=== PATIENT | male | born 2005 | race Caucasian/White ===

== ENCOUNTER 2025-02-16 10:04 | Emergency (ER) | payer OTHER, SELFPAY ==
--- NOTE | ~2025-02-16 | CT_ITS ---
EXAMINATION: CT abdomen pelvis w con DATE: 02/16/2025 13:07 INDICATION: Abdominal pain TECHNIQUE: Computed tomography (CT) of the abdomen and pelvis was performed with 100 mL Omnipaque-350 intravenous contrast. Automated exposure control and iterative reconstruction technique were employe d. The dose-length product was 411.27 mGy-cm. COMPARISON: None FINDINGS: Elevation of the left hemidiaphragm. Lungs are clear with no pneumonia, pulmonary edema or pleural ef fusion. Heart size is normal. Small pericardial effusion. Liver, gallbladder, spleen, pancreas, bilat eral adrenal glands and kidneys are normal. Bowels including the appendix are normal. Bladder is norm al. No free intraperitoneal gas or fluid. No pathologically enlarged abdominal or pelvic lymphadenopa thy. Partially visualized left femoral retrograde intramedullary ronnie fixation with subtrochanteric in terlocking screw. IMPRESSION: 1. No acute intra-abdominal/pelvic process. 2. Small pericardial effusion. 3. Elevation of the left hemidiaphragm. Reviewed, dictated and finalized at location A.
[2025-02-16 10:15] VITALS: BP 143/86; PULSE 124; RESP 20; TEMP 36.6; O2SAT 97
[2025-02-16 10:46] LABS: Basophils Percent Auto 0.3 % (0.2-1.2); Eosinophils Percent Auto 0.1 % (0-4.4); Hematocrit 46.6 % (42.0-52.0); Hemoglobin 17.2 g/dL (14.0-18.0); Immature Granulocyte Absolute 0.09 K/mm3 (0.00-0.031); Immature Granulocyte Percent A 0.8 % (0-0.5); Lymphocytes Absolute Auto 1.08 K/mm3 (0.9-3.2); Lymphocytes Percent Auto 10.1 % (18.3-44.2); Mean Corpuscular HGB Conc 36.9 g/dl (32-36); Mean Corpuscular Hemoglobin 30.8 pg (26-34); Mean Corpuscular Volume 83.4 fl (80-100); Mean Platelet Volume 9.9 fl (7.4-10.4); Monocytes Percent Auto 9.4 % (2.6-8.5); Neutrophils Absolute Auto 8.4 K/mm3 (1.3-6.7); Neutrophils Percent Auto 79.3 % (45.5-73.1); Platelet Count Result 237 k/mm3 (150-375); Red Blood Count 5.59 M/mm3 (4.6-6.20); Red Cell Distribution Width 11.5 % (11.5-14.5); White Blood Count 10.7 K/mm3 (4.5-10.0)
[2025-02-16 10:55] LABS: Alanine Aminotransferase 36 U/L (6-50); Albumin Level 4.9 g/dL (3.5-5.1); Alkaline Phosphatase 77 U/L (38-126); Anion Gap 18 mmol/L (4-12); Aspartate Amino Transferase 22 U/L (17-59); Bilirubin,Total 1.3 mg/dL (0.2-1.3); Blood Urea Nitrogen 5 mg/dL (9-20); Calcium 9.7 mg/dL (8.4-10.2); Carbon Dioxide 18 mmol/L (22-30); Chloride 100 mmol/L (98-107); Estimated CRCL calculation 134 ml/min; Estimated Glomerular Filt Rate > 60; Glucose 105 mg/dL (65-110); Lipase 57 U/L (23-300); Potassium 3.3 mmol/L (3.4-5.0); Sodium 136 mmol/L (137-145)
[2025-02-16 11:14] VITALS: PULSE 108; RESP 16
[2025-02-16 11:15] VITALS: PULSE 111; RESP 21; O2SAT 100
[2025-02-16 11:36] VITALS: PULSE 116; RESP 18; O2SAT 100
--- OUTSIDE RECORDS SUMMARY | 2025-02-16 11:43 | XMS_ITS | Clinical Summary ---
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 Internal fixation with plates and screws for a distal fibula fracture. Hardware appears intact. Alignment appears unchanged. Bone density and texture are normal. Soft tissue swelling is present. A staple projects over the distal fibula Procedure Note Elicia Wang MD - 01/22/2025 PROCEDURE: XR TIBIA FIBULA LEFT 2VW, DATE/TIME OF EXAM: 01/22/2025 9:11 AM, LOCATION [facility] INDICATION: S82.202A: Closed fracture of left tibia and fibula, initial encounter S82.402A: Closed fracture of left tibia and fibula, initial encounter ADDITIONAL CLINICAL INFORMATION: Ordering Provider Reason For Exam: fx COMPARISON: Left tibia-fibula x-ray 10/23/2024 FINDINGS: Internal fixation with an intramedullary nail and screws for a distaltibia fracture. Internal fixation with plates and screws for a distal fibula fracture. Hardware appears intact. Alignment appears unchanged. Bone density and texture are normal. Soft tissue swelling is present. Astaple projects over the distal fibula IMPRESSION: Internal fixation for a distal tibia and fibula fracture with intact hardware and unchanged alignment. Report dictated by Jese Tinajero DO (radiology tech). IElicia MD have personally reviewed and interpreted this examination/study. > Interpreting Provider: Elicia Wang MD on 01/22/2025 5:09 PM Vidhya Yang MD DIAGNOSTIC IMAGING O RDERABLES * CARDIAC EKG ORDER (01/01/2025 1:03 PM INTERIOR DESIGN PROGRAM CHAIR) Narrative 01/01/2025 1:03 PM INTERIOR DESIGN PROGRAM CHAIR Ordered by an unspecified provider. Scanned Document CARDIAC SERVICES ORD ERABLES * D-DIMER (12/30/2024 8:43 PM INTERIOR DESIGN PROGRAM CHAIR) D-Dimer Quantitative <0.27 <=0.50 mcg/mL FEU 12/30/2024 9:22 PM INTERIOR DESIGN PROGRAM CHAIR [facility] Comment: In the absence of clinical symptoms, a value less than or equal to 0.5 mcg/mL FEU significantly decreases the probability of PE/DVT (negative predictive value >95%). 1 mcg/mL FEU = 1 Fibrinogen Equivalent Unit (approximates 0.5 mcg/ml of D- Dimer). ISTH DIAGNOSTIC SCORING SYSTEM FOR DIC Score 0 1 2 3 Platelet Count(x10^3/uL) > 100 < 100 < 50 N/A PT Prolongation above upper limit of normal 0-3 3-6 > 6 N/A range (seconds) Fibrinogen (mg/dL) > 100 < 100 N/A N/A D-Dimer (mcg/mL FEU) < 0.50 N/A 0.50-5.0 > 5 Calculate Cumulative Score: > or = 5 :compatible with overt DIC < 5 :suggestive for non-overt DIC N/A = Non applicable Reference: Br. J. Haematol. 145:24-33,2008. Blood BLOOD SPECIMEN / Unknown Venipuncture / Unknown 12/30/2024 8:43 PM INTERIOR DESIGN PROGRAM CHAIR 12/30/2024 8:46 PM INTERIOR DESIGN PROGRAM CHAIR Marco Gonzalez MD LAB - COAGULATION OR DERABLES [facility] [address] [place] [address], [facility] [phone] * (ABNORMAL) CBC W AUTO DIFFERENTIAL (12/30/2024 8:43 PM INTERIOR DESIGN PROGRAM CHAIR) Only the most recent of2 resultswithin the time period is included. WBC 15.3(H) 4.0 - 10.7 x10E9/L 12/30/2024 8:53 PM [facility] RBC Count 5.91(H) 4.30 - 5.80 x10E12/L 12/30/2024 8:53 PM [facility] Hemoglobin 17.7(H) 13.3 - 17.5 g/dL 12/30/2024 8:53 PM [facility] Hematocrit 47.8 38.7 - 51.1 % 12/30/2024 8:53 PM [facility] MCV 80.9 80.0 - 98.0 fL 12/30/2024 8:53 PM [facility] MCH 29.9 26.7 - 33.6 pg 12/30/2024 8:53 PM [facility] MCHC 37.0(H) 31.7 - 36.3 g/dL 12/30/2024 8:53 PM [facility] RDW-CV 12.7 11.3 - 14.8 % 12/30/2024 8:53 PM [facility] Platelet Count 296 150 - 420 x10E9/L 12/30/2024 8:53 PM [facility] MPV 10.1 7.8 - 11.4 fL 12/30/2024 8:53 PM [facility] Neutrophil % 77.7(H) 41.0 - 74.0 % 12/30/2024 8:53 PM [facility] Lymphocyte % 12.5(L) 17.0 - 47.0 % 12/30/2024 8:53 PM [facility] Monocyte % 8.7 3.0 - 11.0 % 12/30/2024 8:53 PM [facility] Eosinophil % 0.1 0.0 - 7.0 % 12/30/2024 8:53 PM [facility] Basophil % 0.4 0.0 - 1.6 % 12/30/2024 8:53 PM [facility] Immature Granulocytes % 0.6 0.0 - 1.0 % 12/30/2024 8:53 PM [facility] Neutrophil Absolute 11.91(H) 1.60 - 7.50 x10E9/L 12/30/2024 8:53 PM [facility] Lymphocyte Absolute 1.91 1.00 - 4.40 x10E9/L 12/30/2024 8:53 PM [facility] Monocyte Absolute 1.34(H) 0.15 - 1.00 x10E9/L 12/30/2024 8:53 PM [facility] Eosinophil Absolute 0.01 0.00 - 0.60 x10E9/L 12/30/2024 8:53 PM [facility] Basophil Absolute 0.06 0.00 - 0.13 x10E9/L 12/30/2024 8:53 PM [facility] Blood BLOOD SPECIMEN / Unknown Venipuncture / Unknown 12/30/2024 8:43 PM INTERIOR DESIGN PROGRAM CHAIR 12/30/2024 8:49 PM INTERIOR DESIGN PROGRAM CHAIR Marco Gonzalez MD LAB - HEMATOLOGY ORD ERABLES [facility] [address] [place] [id number], [facility] [phone] * (ABNORMAL) COMPREHENSIVE METABOLIC PANEL (12/30/2024 8:43 PM INTERIOR DESIGN PROGRAM CHAIR) Only the most recent of2 resultswithin the time period is included. BUN 7 7 - 26 mg/dL 12/30/2024 9:12 PM [facility] Creatinine 0.87 0.71 - 1.16 mg/dL 12/30/2024 9:12 PM [facility] Sodium 140 136 - 145 mmol/L 12/30/2024 9:12 PM [facility] Potassium 3.3(L) 3.5 - 4.5 mmol/L 12/30/2024 9:12 PM [facility] Chloride 99 98 - 107 mmol/L 12/30/2024 9:12 PM [facility] CO2 25 22 - 29 mmol/L 12/30/2024 9:12 PM [facility] Glucose 87 70 - 99 mg/dL 12/30/2024 9:12 PM [facility] Calcium 10.5(H) 8.4 - 10.2 mg/dL 12/30/2024 9:12 PM [facility] Protein Total 7.9 6.0 - 8.3 g/dL 12/30/2024 9:12 PM [facility] Albumin 5.3(H) 3.4 - 5.0 g/dL 12/30/2024 9:12 PM [facility] Bilirubin Total 1.6(H) 0.2 - 1.2 mg/dL 12/30/2024 9:12 PM [facility] Alkaline Phosphatase 89 40 - 150 U/L 12/30/2024 9:12 PM [facility] ALT 30 5 - 55 U/L 12/30/2024 9:12 PM [facility] AST 17 5 - 34 U/L 12/30/2024 9:12 PM [facility] Anion Gap 16 6 - 16 12/30/2024 9:12 PM [facility] BUN/Creatinine Ratio 8 7 - 23 12/30/2024 9:12 PM [facility] Osmolality Calculated 287 275 - 295 mOsm/kg 12/30/2024 9:12 PM [facility] Albumin/Globulin Ratio 2.0 1.1 - 2.3 12/30/2024 9:12 PM [facility] eGFR by CKD-EPI >90 >=90 mL/min/1.7 3 m2 12/30/2024 9:12 PM [facility] Blood BLOOD SPECIMEN / Unknown Venipuncture / Unknown 12/30/2024 8:43 PM INTERIOR DESIGN PROGRAM CHAIR 12/30/2024 8:46 PM [facility] Marco Gonzalez MD LAB - CHEMISTRY [facility] Organization Address City/State/ZIP Co de Phone Number [address] [address], [facility] [phone] * ALCOHOL ETHYL BLOOD (12/30/2024 8:43 PM INTERIOR DESIGN PROGRAM CHAIR) Ethanol (mg/dL) <10 <10 mg/dL 9:12 PM INTERIOR DESIGN PROGRAM CHAIR [facility] Ethanol Calculated (g/dL) <0.010 <=0.010 g/dL 12/30/2024 9:12 PM INTERIOR DESIGN PROGRAM CHAIR [facility] Blood BLOOD SPECIMEN / Unknown Venipuncture / Unknown 12/30/2024 8:43 PM INTERIOR DESIGN PROGRAM CHAIR 12/30/2024 8:46 PM INTERIOR DESIGN PROGRAM CHAIR Narrative [facility] - 12/30/2024 9:12 PM INTERIOR DESIGN PROGRAM CHAIR Ethanol Interp <10: None Detected. Depression of LOADING MACHINE ADJUSTER: >100 mg/dl Potentially Critical: >250 mg/dl Potentially Fatal >400 mg/dl Ethanol in the patient's blood will contribute to the osmolar gap. Ethanol's contribution to the osmolar gap can be estimated by dividing the concentration of ethanol in mg/dL by 4.6. This test is for clinical use only and does not equal a PANCHITO for legal purposes. Marco Gonzalez MD LAB - CHEMISTRY [facility] Organization Address City/State/ZIP Co de Phone Number [address] [address], [facility] [phone] * CT ABDOMEN PELVIS W CONTRAST (12/29/2024 9:33 AM INTERIOR DESIGN PROGRAM CHAIR) Anatomical Region Laterality Modality Abdomen, Pelvis Computed Tomogra phy 12/29/2024 9:45 AM INTERIOR DESIGN PROGRAM CHAIR Impressions 12/29/2024 10:12 AM INTERIOR DESIGN PROGRAM CHAIR Impression: 1.No acute process identified in the abdomen or pelvis. 2.Diverticulosis without evidence of diverticulitis. > Dictated by Alex Gar MD (radiology tech). I, Israel Burton MD have personally reviewed and interpreted this examination/study. > Interpreting Provider: Israel Burton MD on 12/29/2024 10:12 AM Narrative 12/29/2024 10:12 AM INTERIOR DESIGN PROGRAM CHAIR PROCEDURE: CT ABDOMEN PELVIS W CONTRAST DATE/TIME OF EXAM: 12/29/2024 9:33 AM CLINICAL INFORMATION: None relevant/not provided if blank. Indication: R10.13: Abdominal pain, epigastric Additional History: COMPARISON: CT abdomen and pelvis 09/22/2024 TECHNIQUE: CT of the abdomen and pelvis was performed following the uneventful administration of 100 mL of Isovue 370 intravenous contrast according to standard protocol. Findings: Lower Chest: The lung bases are clear. Liver: Normal. Gallbladder and Bile Ducts: Normal. Spleen: Normal. Pancreas: Normal. Adrenals: Normal. Kidneys: Normal. Gastrointestinal: The stomach and visualized loops of small bowel are unremarkable. Colonic diverticulosis without evidence of diverticulitis is seen. Normal appendix. Mesentery/Peritoneum/Retroperitoneum: Normal. Bladder: Normal. Reproductive Organs: The prostate is normal. Vasculature: No vascular abnormality is present. Bones: Bone windows demonstrate no suspicious lytic or blastic lesions. The visible osseous structures are intact. Partially visualized intramedullary ronnie in the left femur. Soft tissues: Normal. Procedure Note Israel Burton MD - 12/29/2024 PROCEDURE: CT ABDOMEN PELVIS W CONTRAST DATE/TIME OF EXAM: 12/29/2024 9:33 AM CLINICAL INFORMATION: None relevant/not provided if blank. Indication: R10.13: Abdominal pain, epigastric Additional History: COMPARISON: CT abdomen and pelvis 09/22/2024 TECHNIQUE: CT of the abdomen and pelvis was performed following the uneventful administration of 100 mL of Isovue 370 intravenous contrast according to standard protocol. Findings: Lower Chest: The lung bases are clear. Liver: Normal. Gallbladder and Bile Ducts: Normal. Spleen: Normal. Pancreas: Normal. Adrenals: Normal. Kidneys: Normal. Gastrointestinal: The stomach and visualized loops of small bowel are unremarkable.Colonic diverticulosis without evidence of diverticulitis is seen. Normalappendix. Mesentery/Peritoneum/Retroperitoneum: Normal. Bladder: Normal. Reproductive Organs: The prostate is normal. Vasculature: No vascular abnormality is present. Bones: Bone windows demonstrate no suspicious lytic or blastic lesions. The visible osseous structures are intact. Partially visualizedintramedullary ronnie in the left femur. Soft tissues: Normal. Impression: 1.No acute process identified in the abdomen or pelvis. 2.Diverticulosis without evidence of diverticulitis. > Dictated by Alex Gar MD (radiology tech). I, Israel Burton MD have personally reviewed and interpreted this examination/study. > Interpreting Provider: Israel Burton MD on 510:12 AM Marco Jiménez MD CT ORDERABLES * LACTIC ACID BLOOD REFLEX TO REPEAT (12/29/2024 7:55 AM INTERIOR DESIGN PROGRAM CHAIR) Lactic Acid-Stat 1.8 <=2.0 mmol/L 12/29/2024 8:54 AM INTERIOR DESIGN PROGRAM CHAIR [facility] Blood BLOOD SPECIMEN / Unknown Venipuncture / Unknown 12/29/2024 7:55 AM INTERIOR DESIGN PROGRAM CHAIR 12/29/2024 8:12 AM INTERIOR DESIGN PROGRAM CHAIR Marco Jiménez MD LAB - CHEMISTRY [facility]YLE [facility]KS Performing Organization Address City/[facility]/ZIP Co de Phone Number [address] [address], [facility] [phone] * (ABNORMAL) LIPASE BLOOD (12/29/2024 7:55 AM INTERIOR DESIGN PROGRAM CHAIR) Lipase 7(L) 8 - 78 U/L 12/29/2024 9:01 AM INTERIOR DESIGN PROGRAM CHAIR [facility] Blood BLOOD SPECIMEN / Unknown Venipuncture / Unknown 12/29/2024 7:55 AM INTERIOR DESIGN PROGRAM CHAIR 12/29/2024 8:33 AM INTERIOR DESIGN PROGRAM CHAIR Narrative [facility] - 12/29/2024 9:01 AM INTERIOR DESIGN PROGRAM CHAIR Lipase results from the [employer] Alinity analyzer may not be comparable with other methodologies. Marco Jiménez MD LAB - CHEMISTRY [facility]YLE SHANKS [address] [address], [place] [phone] * ETT LINE PERFORMABLE (12/15/2024 2:29 PM INTERIOR DESIGN PROGRAM CHAIR) Narrative Camron Garrison MD - 12/15/2024 2:29 PM INTERIOR DESIGN PROGRAM CHAIR Camron Garrison MD 12/15/2024 2:30 PM Endotracheal Tube Placement: Patient Location: OR. Intubation Event Date/Time: 12/15/2024 2:13 PM Procedure: intubation ([id number]) Procedure Section: Induction: standard IV Patient Position: sniffing Mask Ventilation: easy. Blade Type: Jax Blade Size: 4 Laryngoscopy View: grade 1 (full cords) Intubation Adjuncts: stylet Tube: endotracheal tube Placement: oral Tube type: cuff - inflated Tube Size (MM): 8 Depth of Insertion (CM): 23 Measured From: lips Cuff volume (mL): 8 Cuff Inflated With: air Number of Attempts: 1. Placement Verified By: direct visualization, bilateral breath sounds, chest auscultation and CO2 monitor Tube secured with: adhesive tape. Dentition unchanged? Yes Difficult Airway? No. Procedure Start Time: 12/15/2024 2:13 PM. Staff Section Anesthesia Provider: Camron Garrison MD, Performed the procedure Provider #1: Gian Damon DO. Gian Damon DO GENERAL ANESTHESI A ORDERABLES from Last 3 Months Advance Directives * Full Code (Latest Code Status on File) Date Activated Date Inactivated Comments 09/22/2024 5:34 PM 09/22/2024 7:42 PM * Full Code Date Activated Date Inactivated Comments 07/29/2024 3:21 AM 08/08/2024 2:18 PM Care Teams Ict Project Manager Relationship Specialty Start Date End Date Prem Rodriguez MD [address] [address] PCP - General Family Medicine 07/31/24 Prem Rodriguez MD [address] [address] Family Medicine 07/29/24
--- OUTSIDE RECORDS SUMMARY | 2025-02-16 11:43 | XMS_ITS | Clinical Summary ---
Author Organization [facility] Address [address] [place] [address] Phone Care Team Providers Care Mortgage Loan Funder Name Role Phone Prem Rodriguez MD Primary Care Provider [phone] Allergies Active Allergy Reactions Criticality Noted Date Comments Amoxicillin-Pot Clavulanate Rash Medium 04/01/20 24 Cephalexin Hives High 09/20/2019 Medications omeprazole (PriLOSEC) 40 mg Capsule, Delayed Release(E.C.) Take 40 mg by mouth daily. Active gabapentin (NEURONTIN) 100 mg capsule Take 100 mg by mouth 3 times daily. Active Active Problems Problem Noted Date Diagnosed Date Seizure 12/09/2024 Encounters Date Type Department Care Team Description 02/06/2025 External Device Data ST[facility] ABSTRACTION Provider, Abstract 02/06/2025 External Device Data [facility] ABSTRACTION Provider, Abstract 01/09/2025 External Device Data [facility] ABSTRACTION Provider, Abstract 01/02/2025 External Device Data [facility] ABSTRACTION Provider, Abstract 01/02/2025 External Device Data [facility] ABSTRACTION Provider, Abstract 12/12/2024 External Device Data [facility] ABSTRACTION Provider, Abstract 12/12/2024 External Device Data [facility] ABSTRACTION Provider, Abstract 12/12/2024 External Device Data [facility] ABSTRACTION Provider, Abstract 12/08/2024 7:44 PM INVESTMENT EXECUTIVE - 12/09/2024 12:01 AM INVESTMENT EXECUTIVE Emergency [facility] [address] [place] [address] Seizure (CMS/HCC) (Primary Dx) Discharge Disposition: Home or Self Care 12/08/2024 Travel from Last 3 Months Social History Tobacco Use Types Packs/Day Years Used Date Smoking Tobacco: Some Days Cigarettes Smokeless Tobacco: Current Tobacco Cessation:Ready to Q uit: Not Asked; Counseling Given: Not Answered Alcohol Use Standard Drinks/Week Comments Yes 0 (1 standard drink = 0.6 oz pur e alcohol) Feeling Safe Answer Date Recorded Are you in a relationship wi th someone who hurts you emotionally and/or physically? No 12/08/2024 Sex and Gender Information Value Date Recorded Sex Assigned at Not on file Legal Sex Male 11:51 AM INVESTMENT EXECUTIVE Gender Identity Not on file Sexual Orientation Not on file Last Filed Vital Signs Vital Sign Reading Time Taken Comments Blood Pressure 107/93 12/08/2024 11:55 PM INVESTMENT EXECUTIVE Pulse 90 12/08/2024 11:55 PM INVESTMENT EXECUTIVE Temperature 37.1 C (98.8 F) 12/08/2024 5:53 PM INVESTMENT EXECUTIVE Respiratory Rate 27 12/08/2024 11:55 PM INVESTMENT EXECUTIVE Oxygen Saturation 100% 12/08/2024 11:55 PM INVESTMENT EXECUTIVE Inhaled Oxygen Concentration - - Weight 90.7 kg (200 lb) 12/08/2024 5:53 PM INVESTMENT EXECUTIVE Height 177.8 cm (5' 10 ) 12/08/2024 5:53 PM INVESTMENT EXECUTIVE Body Mass Index 28.7 12/08/2024 5:53 PM INVESTMENT EXECUTIVE Plan of Treatment Health Maintenance Due Date Last Done Comments HPV VACCINES (1 - Male 3-dose series) 2018 HEPATITIS B VACCINES (1 of 3 - 19+ 3-dose series) 04/09 INFLUENZA VACCINE (#1) 2024 DTAP/TDAP/TD VACCINES (2 - Td or Tdap) 07/29/2034 Procedures Procedure Name Priority Date/Time Associated Diagnosis Comments RAPID EEG Stat 12/09/2024 10:[address] HEAD WO CONTRAST Stat 12/08/2024 1 0:07 PM INVESTMENT EXECUTIVE EKG 12-LEAD Stat 12/08/2024 8:20 PM INVESTMENT EXECUTIVE PROLACTIN Stat 12/08/2024 5:56 PM INVESTMENT EXECUTIVE COMPREHENSIVE METABOLIC PANEL Stat 12/08/2024 5:56 PM INVESTMENT EXECUTIVE CBC WITH DIFFERENTIAL Stat 12/08/2024 5:56 PM INVESTMENT EXECUTIVE from Last 3 Months Results * RAPID EEG (12/09/2024 10:44 AM INVESTMENT EXECUTIVE) Narrative Marshal Nieto MD - 12/09/2024 10:44 AM INVESTMENT EXECUTIVE Marshal Nieto MD 12/09/2024 10:[address] [address] Name; Danis Rangel CSN; [id number] MRN; [id number] ; 2005 Procedure; December 08 2024 Rapid Electroencephalography History; The patient is a 19 y.o. year-old with history of seizures had a rapid EEG on December 08, 2024 from 8:51 PM to 10:04 PM for 1 hour 13 minutes it was ordered by the ER physician Dr. Norman. Study type; Rapid EEG with Ceribell .The rapid EEG was performed using a 10-lead EEG system placed circumferentially without any parasagittal coverage. Reason for EEG; Patient with history of seizures. INTERPRETATION: The background activity consists of 9 to 10 Hz alpha range activity of low to medium amplitude is also present. During drowsiness lower amplitude theta range activity is seen. Intermittent electrode artifact and low to medium amplitude beta range activity seen which is secondary to muscle artifact and electrode artifact. There is no evidence of any asymmetry or epileptiform discharges seen. Seizure burden is 3% which is likely secondary to electrode artifact. IMPRESSION: This is a normal awake and sleep electroencephalogram. Marshal Christine M.D Board certified Neurology, Neurophysiology and Sleep medicine Caesar Norman [facility] NEUROLOGY ORDERABLES Final Resu lt * CT HEAD WO CONTRAST (12/08/2024 10:07 PM INVESTMENT EXECUTIVE) Anatomical Region Laterality Modality Head Computed Tomogra phy 12/08/2024 10:0 7 PM INVESTMENT EXECUTIVE Impressions 12/08/2024 10:15 PM INVESTMENT EXECUTIVE IMPRESSION: 1. No acute intracranial findings. DICTATION LOCATION: Location [address] [place] [address] Narrative 12/08/2024 10:15 PM INVESTMENT EXECUTIVE EXAMINATION: CT HEAD WO CONTRAST DATE: 12/08/2024 10:07 PM HISTORY: Seizure, new-onset, no history of trauma TECHNIQUE: CT of the head was performed without contrast according to standard protocol. The examination was performed with the adjustment of mA according to the patient size and/or the use of Iterative Reconstruction Technique. COMPARISON: CT head dated 01/03/2023 FINDINGS: There is no acute intracranial hemorrhage. There is no focal mass effect or midline shift. The ventricles and sulci are preserved. The basilar cisterns are patent. The calvarium appears intact. Visualized paranasal sinuses and mastoid air cells are clear. Procedure Note Prem Graf MD - 12/08/2024 EXAMINATION: CT HEAD WO CONTRAST DATE: 12/08/2024 10:07 PM HISTORY: Seizure, new-onset, no history of trauma TECHNIQUE: CT of the head was performed without contrast according to standard protocol. The examination was performed with the adjustment of mA according to the patient size and/or the use of Iterative Reconstruction Technique. COMPARISON: CT head dated 01/03/2023 FINDINGS: There is no acute intracranial hemorrhage. There is no focal mass effect or midline shift. The ventricles and sulci are preserved. The basilar cisterns are patent. The calvarium appears intact. Visualized paranasal sinuses and mastoid air cells are clear. IMPRESSION: 1. No acute intracranial findings. DICTATION LOCATION: Location [address] [place] [address] Caesar Adanyuli [facility] CT ORDERABLES Final Result * EKG 12-LEAD (12/08/2024 8:20 PM INVESTMENT EXECUTIVE) 12/08/2024 8:[address] [facility] Narrative INTERFACE SYSTEM - 12/09/2024 8:08 AM [facility] [place] [address] [place] [address] Test Date: 2024-12-08 Pat Name: DANIS RANGEL Department: 92 Room: 8911 [id number] Gender: Male Loss Prevention And Safety Manager: mary : 2005 Requested By: Order Number: [id number] Reading MD: Sergio Hill Measurements Intervals [place] Rate: 97 P: 59 NM: 142 QRS: 39 QRSD: 98 T: 49 QT: 334 QTc: 424 Interpretive Statements Normal sinus rhythm with sinus arrhythmia Normal ECG Compared to ECG 01/03/2023 12:59:55 No significant changes Electronically Signed On 12-09-2024 8:08:27 INVESTMENT EXECUTIVE by Sergio Hill Procedure Note Sergio Hill MD - 12/09/2024 [facility] [place] [address] [place] [address] Test Date: 2024-12-08 Pat Name: DANIS RANGEL Department: 92 Room: [address] [place] [address] Gender: Male Loss Prevention And Safety Manager: mary : 2005 Requested By: Order Number: [id number] Reading MD: Sergio Hill Measurements Intervals [place] Rate: 97 P: 59 NM: 142 QRS: 39 QRSD: 98 T: 49 QT: 334 QTc: 424 Interpretive Statements Normal sinus rhythm with sinus arrhythmia Normal ECG Compared to ECG 01/03/2023 12:59:55 No significant changes Electronically Signed On 12-09-2024 8:08:27 INVESTMENT EXECUTIVE by Sergio Hill Caesar [facility] ECG ORDERABLES Final Result INTERFACE SYSTEM Refer to clinic/hospital department * (ABNORMAL) CBC WITH DIFFERENTIAL (12/08/2024 5:56 PM INVESTMENT EXECUTIVE) WBC 10.6(H) 4.0 - 9.8 K/uL 12/08/2024 6:11 PM INVESTMENT EXECUTIVE [facility] RBC 5.15 4.50 - 5.40 M/uL 12/08/2024 6:11 PM INVESTMENT EXECUTIVE [facility] HEMOGLOBIN 15.3 13.6 - 16.5 g/dL 12/08/2024 6:11 PM INVESTMENT EXECUTIVE [facility] HEMATOCRIT 43.9 40.0 - 48.0 % 12/08/2024 6:11 PM INVESTMENT EXECUTIVE [facility] MCV 85.2 82.0 - 99.0 fL 12/08/2024 6:11 PM INVESTMENT EXECUTIVE [facility] MCH 29.7 27.2 - 32.6 pg 12/08/2024 6:11 PM INVESTMENT EXECUTIVE [facility] MCHC 34.9 31.5 - 35.5 g/dL 12/08/2024 6:11 PM [facility] RDW 13.3 11.5 - 14.5 % 12/08/2024 6:11 PM [facility] RDW-STDEV 41.4 37.1 - 48.7 fL 12/08/2024 6:11 PM [facility] PLATELETS 246 140 - 350 K/uL 12/08/2024 6:11 PM [facility] MPV 9.6 9.3 - 12.4 fL 12/08/2024 6:11 PM [facility] NEUTROPHILS 88 % 12/08/2024 6:11 PM [facility] LYMPHOCYTES 7 % 12/08/2024 6:11 PM [facility] MONOCYTES 5 % 12/08/2024 6:11 PM [facility] EOSINOPHILS 0 % 12/08/2024 6:11 PM [facility] BASOPHILS 0 % 12/08/2024 6:11 PM [facility] IMMATURE GRANULOCYTES 1 % 12/08/2024 6:11 PM [facility] Comment:IG (Immature Granulo cyte) count includes Metamyelocytes, Myelocytes, and Promyelocytes NEUTROPHIL ABSOLUTE 9.26(H) 1.90 - 7.00 K/uL 12/08/2024 6:11 PM [facility] LYMPHOCYTE ABSOLUTE 0.71 0.70 - 4.50 K/uL 12/08/2024 6:11 PM [facility] MONOCYTE ABSOLUTE 0.50 0.10 - 1.30 K/uL 12/08/2024 6:11 PM [facility] EOSINOPHIL ABSOLUTE 0.02 0.00 - 0.70 K/uL 12/08/2024 6:11 PM [facility] BASOPHILS ABSOLUTE 0.03 0.00 - 0.20 K/uL 12/08/2024 6:11 PM [facility] IMMATURE GRANULOCYTES ABSOLUTE 0.05(H) 0.00 - 0.03 K/uL 12/08/2024 6:11 PM INVESTMENT EXECUTIVE [facility] Blood Venipuncture / Unknown 12/08/2024 5:56 PM INVESTMENT EXECUTIVE 12/08/2024 6:11 PM INVESTMENT EXECUTIVE Protocol [facility] MD HEMATOLOGY ORDERABLES Final Result [facility]# [id number] [place] [address] * PROLACTIN (12/08/2024 5:56 PM INVESTMENT EXECUTIVE) PROLACTIN 11.9 3.7 - 17.9 ng/mL 12/08/2024 9:45 PM INVESTMENT EXECUTIVE [facility] Blood Venipuncture / Unknown 12/08/2024 5:56 PM INVESTMENT EXECUTIVE 12/08/2024 6:02 PM INVESTMENT EXECUTIVE Caesar [facility] CHEMISTRY ORDERABLES Final Resu lt [facility]# [id number] [place] [address] * (ABNORMAL) COMPREHENSIVE METABOLIC PANEL (12/08/2024 5:56 PM INVESTMENT EXECUTIVE) SODIUM 140 136 - 145 mmol/L 12/08/2024 6:31 PM INVESTMENT EXECUTIVE [facility] POTASSIUM 4.2 3.4 - 5.1 mmol/L 12/08/2024 6:31 PM INVESTMENT EXECUTIVE [facility] CHLORIDE 103 98 - 107 mmol/L 12/08/2024 6:31 PM INVESTMENT EXECUTIVE [facility] CO2 24 22 - 29 mmol/L 12/08/2024 6:31 PM INVESTMENT EXECUTIVE [facility] CALCIUM 9.9 8.6 - 10.4 mg/dL 12/08/2024 6:31 PM INVESTMENT EXECUTIVE [facility] BUN 6 6 - 20 mg/dL 12/08/2024 6:31 PM [facility] CREATININE 0.77 0.67 - 1.17 mg/dL 12/08/2024 6:31 PM [facility] GLUCOSE 100(H) 74 - 99 mg/dL 12/08/2024 6:31 PM [facility] TOTAL PROTEIN 7.1 6.3 - 8.7 g/dL 12/08/2024 6:31 PM [facility] ALBUMIN 4.5 3.5 - 5.2 g/dL 12/08/2024 6:31 PM [facility] BILIRUBIN TOTAL 0.4 0.3 - 1.2 mg/dL 12/08/2024 6:31 PM [facility] ALKALINE PHOSPHATASE 93 40 - 150 U/L 12/08/2024 6:31 PM [facility] AST 19 0 - 41 U/L 12/08/2024 6:31 PM [facility] ALT 19 0 - 41 U/L 12/08/2024 6:31 PM [facility] GFR >60 >=60 mL/min/1.7 3 sq meter 12/08/2024 6:31 PM [facility] Comment:eGFR calculated with 2020 CKD-EPI equation. Vegetarian diet, extremely high or low muscle mass, and may affect results. Cystatin C with Glomerular Filtration Rate is a suitable alternative for these patients. ANION GAP 13 8 - 16 mmol/L 12/08/2024 6:31 PM [facility] Blood Venipuncture / Unknown 12/08/2024 5:56 PM INVESTMENT EXECUTIVE 12/08/2024 6:02 PM INVESTMENT EXECUTIVE us Protocol [facility] MD CHEMISTRY ORDERABLES Final Result [facility] CLIA# [id number] [place] [address] from Last 3 Months Insurance [facility] Care Teams Mortgage Loan Funder Relationship Specialty Start Date End Date Prem Rodriguez MD [address] [address] PCP - General Family Practice 01/03/23
--- OUTSIDE RECORDS SUMMARY | 2025-02-16 11:43 | XMS_ITS | Encounter Summary ---
Author Organization [facility] Address [address] [facility] [place] [address] Care Team Providers Care Mold Yard Worker Name Role Phone Prem Rodriguez MD Primary Care Provider [phone] Prem Rodriguez MD Unavailable [phone] Reason for Visit * Reason Comments Nausea Fatigue Encounter Details Date Type Department Care Team ([facility] Contact Info) Description 02/16/2025 8:30 AM CDT Office Visit [facility] - Family Medicine [address] [address] Christopher Kumar PA-C [address] [address] Social History Tobacco Use Types Packs/Day Years Used Date Smoking Tobacco: Former Cigarettes Smokeless Tobacco: Never Alcohol Use Standard Drinks/Week Comments Not Currently [...] Recorded Patient Health Questionnaire-2 Score 2 02/14/2025 [employer] [place] of Occupat ional Health - Occupational Stress [...] place to sleep or slept in a long term (including now)? No 07/30/2024 Sex and Gender Information Value Date Recorded Sex Assigned at Not on file Gender Identity Not on file Sexual Orientation Not on file documented as of this encounter Last Filed Vital Signs Vital Sign Reading Time Taken Comments Blood Pressure 141/102 02/16/2025 9:01 AM CDT Pulse 132 02/16/2025 9:01 AM CDT Temperature 37 C (98.6 F) 02/16/2025 9:01 AM CDT Respiratory Rate - - Oxygen Saturation 97% 02/16/2025 9:01 AM CDT Inhaled Oxygen Concentration - - Weight 80.3 kg (177 lb) 02/16/2025 9:01 AM CDT Height 177.8 cm (5' 10 ) 02/16/2025 9:01 AM CDT Body Mass Index 25.4 02/16/2025 9:01 AM CDT documented in this encounter Functional Status Functional Status Response Date of Assess ment Is person deaf or have serious hearing difficult y? No 12/15/2024 Is person blind or have serious difficulty seein g? No 12/15/2024 Does person have serious dif ficulty walking/climbing stairs? No 12/15/2024 Does person have difficulty dressing/bathing? No 12/15/2024 Does person have difficulty doing errands alone? No 12/15/2024 Cognitive Status Response Date of Assessm ent Does person have difficulty concentrating/remembering/making decisions? No 12/15/2024 documented as of this encounter Plan of Treatment Upcoming Encounters Date Type Department Care Team (Late st Contact Info) Description 02/19/2025 10:30 AM CDT Office Visit [facility] - Family Medicine [address] [phone] Sisi Frank APRN-WARP TRUCKER [address] [address] 05/07/2025 11:00 AM CDT Office Visit [facility] Neurosciences [address] [facility] [address] [place] [address] Bri Herrera MD [address] [facility] [address] [place] [address] 07/30/2025 12:00 PM CDT Office Visit [facility] - Orthopedics [address] [facility], [facility] [place] [phone] Vidhya Yang MD [address] [place] [id number] documented as of this encounter Visit Diagnoses Not on filedocumented in this encounter Care Teams Mold Yard Worker Relationship Specialty Start Date End Date Prem Rodriguez MD [address] [phone] PCP - General Family Medicine 07/31/24 Prem Rodriguez MD [address] [address] Family Medicine 07/29/24 documented as of this encounter
--- OUTSIDE RECORDS SUMMARY | 2025-02-16 11:43 | XMS_ITS | Encounter Summary ---
Author Organization [facility] Address [address] [facility] [place] [address] Care Team Providers Care Gluing Crew Leader Name Role Phone Prem Rodriguez MD Primary Care Provider [phone] Prem Rodriguez MD Unavailable [phone] Encounter Details Date Type Department Care Team (Latest Contact Info) Description 02/16/2025 Travel Social History Tobacco Use Types Packs/Day Years [...] Recorded Patient Health Questionnaire-2 Score 2 02/14/2025 [facility] [place] of Occupat ional Health - Occupational Stress [...] place to sleep or slept in a prison (including now)? No 07/30/2024 Sex and Gender Information Value Date Recorded Sex Assigned at Not on file Gender Identity Not on file Sexual Orientation Not on file documented as of this encounter Functional Status Functional Status Response [...] Description 02/19/2025 10:30 AM CDT Office Visit [facility] - Family Medicine [address] [address] Sisi Frank APRN-CONCERT PROMOTER [address] [address] 05/07/2025 11:00 AM CDT Office Visit [facility] Neurosciences [address] [place] [address] Bri Herrera MD [address] [facility] [address] [place] [address] 07/30/2025 12:00 PM CDT Office Visit [facility] - Orthopedics [address] [facility], [facility] [place] [phone] Vidhya Yang MD [address] [place] [address] documented as of this encounter Visit Diagnoses Not on filedocumented in this encounter Care Teams Gluing Crew Leader Relationship Specialty Start Date End Date Prem Rodriguez MD [address] [address] PCP - General Family Medicine 07/31/24 Prem Rodriguez MD [address] [address] Family Medicine 07/29/24 documented as of this encounter
--- OUTSIDE RECORDS SUMMARY | 2025-02-16 11:43 | XMS_ITS | Clinical Summary ---
Author Organization [facility] Address [address] [place] [address] Care Team Providers Care Document Design Specialist Name Role Phone Prem Rodriguez MD Primary Care Provider [phone] Allergies Active Allergy Reactions Criticality Noted Date Comments Amoxicillin Rash Low 02/09/2025 Diazepam Anxiety Low 02/09/2025 Haloperidol Anxiety Low 02/09/2025 Lorazepam Hallucinations 02/09/2025 Medications gabapentin (NEURONTIN) 600 MG tablet Take 1 tablet (600 mg total) by mouth daily as needed (Nerve Pain). Active pantoprazole EC (PROTONIX) 40 MG tablet Take 1 tablet (40 mg total) by mouth nightly as needed (Heartburn). Active QUEtiapine (SEROQUEL) 25 MG tablet Take 1 tablet (25 mg total) by mouth nightly at bedtime. Active omeprazole (PRILOSEC) 20 MG capsule Take 1 capsule (20 mg total) by mouth daily as needed. 02/14/20 25 Discontinu ed(Stop Taking at Discharge) Active Problems Problem Noted Date Diagnosed Date Pneumomediastinum (CMS/HCC HHS/HCC) 02/09/2025 Encounters Date Type Department Care Team Description 02/13/2025 Telephone [facility] Medical Group Multispecialty Care - [facility] [address] [place] [address] Jose D Nichols MD Appointment Request 02/09/2025 12:08 PM CDT - 02/13/2025 11:24 AM T Hospital Encounter [facility] [place] [address] Jim Horowitz, Brian Abraham, Ying Galvan, Ban Moe, Jacqueline Eli, Deirdre Billy, Kala Vázquez, Shortness Of Breath Discharge Disposition: Home or Self Care (Routine Discharge) 02/09/2025 Travel from Last 3 Months Social History Tobacco Use Types Packs/Day Years Used Date Smoking Tobacco: Never Smokeless Tobacco: Never Tobacco Cessation:Counseling Given: Not Answered Alcohol Use Standard Drinks/Week Comments Not Currently 0 (1 standard drink = 0.6 oz pur e alcohol) [facility] Utilities Answer Date Recorded In the past 12 months has th e [employer], gas, oil, or water [employer] threatened to shut off services in your home? No 02/10/2025 Humiliation, Afraid, Rape, and Kick questionnair e Answer Date Recorded Within the last year, have y ou been afraid of your partner or ex-partner? No 02/10/2025 Within the last year, have y ou been humiliated or emotionally abused in other ways by your partner or ex-partner? No Within the last year, have y ou been kicked, hit, slapped, or otherwise physically hurt by your partner or ex-partner? No 02/10/2025 Within the last year, have y ou been raped or forced to have any kind of sexual activity by your partner or ex-partner? No 02/10/2025 Overall Financial Resource Strain (CARDIA) Answe r Date Recorded How hard is it for you to pa y for the very basics like food, housing, medical care, and heating? Not very hard 02/10/2025 Hunger Vital Sign Answer Date Recorded Within the past 12 months, y ou worried that your food would run out before you got the money to buy more. Never true 02/11/20 25 Within the past 12 months, t he food you bought just didn't last and you didn't have money to get more. Never true 02/10/2025 PRAPARE - Transportation Answer Date Re corded In the past 12 months, has l ack of transportation kept you from medical appointments or from getting medications? No 03/2025 In the past 12 months, has l ack of transportation kept you from meetings, work, or from getting things needed for daily living? No 02/10/2025 Housing Stability Vital Sign Answer Nishant e Recorded In the last 12 months, was t here a time when you were not able to pay the mortgage or rent on time? No 02/10/2025 In the past 12 months, how m any times have you moved where you were living? 0 02/10/2025 At any time in the past 12 m [facility], were you homeless or living in a mcc (including now)? No 02/10/2025 Sex and Gender Information Value Date Recorded Sex Assigned at Male 02/09/2025 12:00 PM CDT Legal Sex Male 8:34 PM CDT Gender Identity Not on file Sexual Orientation Not on file Last Filed Vital Signs Vital Sign Reading Time Taken Comments Blood Pressure 113/79 02/13/2025 7:34 AM CDT Pulse 105 02/13/2025 7:34 AM CDT Temperature 36.7 C (98.1 F) 02/13/2025 7:34 AM CDT Respiratory Rate 16 02/13/2025 7:34 AM CDT Oxygen Saturation 99% 02/13/2025 7:34 AM CDT Inhaled Oxygen Concentration - - Weight 81.6 kg (180 lb) 02/13/2025 3:39 AM CDT Height 180.3 cm (5' 11 ) 02/09/2025 8:59 PM CDT Body Mass Index 25.1 02/09/2025 8:59 PM CDT Plan of Treatment Upcoming Encounters Date Type Department Care Team (Late st Contact Info) Description 03/28/2025 1:00 PM CDT Office Visit [facility] Medical Group Multispecialty Care - [facility] [address] [place] [id number] Jose D Nichols MD [address] [facility] [address] [place], [place] [id number] Health Maintenance Due Date Last Done Comments Annual Physical 2006 HPV Vaccines (1 - Male 3-dos e series) 2018 Meningococcal B Vaccine (1 o f 2 - Standard) 2019 Hepatitis C 2021 Hepatitis B Vaccines (1 of 3 - 19+ 3-dose series) 2022 COVID-19 Vaccine (1 - 2023-2 5 season) 2024 PHQ-2 (Physician [place]) 11/08/2024 DTaP, Tdap and Td Vaccines ( 2 - Td or Tdap) 07/29/2034 07/29/2024 Meningococcal Vaccine Aged Out No blair carol eligible based on patient's age to complete this topic Pneumococcal Vaccine: Pediat rics (0 to 5 Years) and At-Risk Patients (6 to 64 Years) Aged Out No longer eligi ble based on patient's age to complete this topic RSV Immunizations Under 20 Months Aged Out No longer eligible based on patient's age to complete this topic Goals Goal Patient Goal Type Associated Problems Recent Progress Patient-Stated? 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 Procedure Name Priority Date/Time Associated Diagnosis Comments BASIC METABOLIC PANEL Routine 02/13/2025 6:55 AM CDT CBC W/DIFF AUTOMATED Routine 02/13/2025 6:55 AM CDT XR CHEST PORTABLE Today 02/13/2025 4:3 1 AM CDT XR ESOPHAGRAM/BARIUM SWALLOW Today 02/12/2025 11:18 AM CDT CBC W/DIFF AUTOMATED Routine 02/12/2025 6:17 AM CDT COMPREHENSIVE METABOLIC PANEL Routine 02/12/2025 6:17 AM CDT MAGNESIUM Routine 02/12/2025 6:17 AM CDT XR CHEST PORTABLE Today 02/12/2025 4:0 7 AM CDT CBC W/DIFF AUTOMATED Routine 02/11/2025 6:58 AM CDT COMPREHENSIVE METABOLIC PANEL Routine 02/11/2025 6:58 AM CDT MAGNESIUM Routine 02/11/2025 6:58 AM CDT CLOSTRIDIUM DIFFICILE Routine 02/10/2025 2:11 PM CDT GI PANEL PCR - STOOL Routine 02/10/2025 2:11 PM CDT OCCULT BLOOD, FECES Routine 02/10/2025 2 :11 PM CDT CBC W/DIFF AUTOMATED Routine 02/10/2025 7:15 AM CDT COMPREHENSIVE METABOLIC PANEL Routine 02/10/2025 7:15 AM CDT MAGNESIUM Routine 02/10/2025 7:15 AM CDT HEMOGLOBIN, GLYCOSYLATED Routine 02/10/2025 7:15 AM CDT PROCALCITONIN (PCT) Routine 02/10/2025 7 :14 AM CDT XR CHEST PORTABLE TIMED 02/10/2025 5:3 4 AM CDT LACTIC ACID STAT 02/09/2025 11:33 PM CDT HC URINALYSIS AUTO W/O MICRO Routine 02/09/2025 6:24 PM CDT DRUG SCREEN RAPID STAT 02/09/2025 6:0 0 PM CDT ECG 12-LEAD Routine 02/09/2025 5:03 PM CDT XR ESOPHAGRAM/BARIUM SWALLOW STAT 02/09/2025 4:[address] CHEST+ABD+PEL W CON STAT 3:17 PM CDT XR CHEST PORTABLE STAT 02/09/2025 1:2 0 PM CDT MAGNESIUM Routine 02/09/2025 12:32 PM CDT LIPASE STAT 02/09/2025 12:32 PM CDT COMPREHENSIVE METABOLIC PANEL STAT 02/09/2025 12:32 PM CDT CBC W/DIFF AUTOMATED STAT 02/09/2025 12:32 PM CDT from Last 3 Months Results * (ABNORMAL) BASIC METABOLIC PANEL (02/13/2025 6:55 AM CDT) [facility] GLUCOSE 87 70 - 99 MG/DL 02/13/2025 7:43 AM CDT [facility] BUN 4(L) 7 - 18 MG/DL 02/13/2025 7:43 AM CDT [facility] CREATININE S/P/B 0.74 0.7 - 1.3 MG/DL 02/13/2025 7:43 AM CDT [facility] SODIUM S/P/B 137 136 - 145 MMOL/L 02/13/2025 7:43 AM CDT [facility] POTASSIUM S/P/B 3.6 3.5 - 5.1 MMOL/L 02/13/2025 7:43 AM CDT [facility] CHLORIDE S/P/B 103 97 - 115 MMOL/L 02/13/2025 7:43 AM CDT [facility] CO2 29.0 21 - 32 MMOL/L 02/13/2025 7:43 AM CDT [facility] CALCIUM S/P/B 9.5 8.5 - 10.1 MG/DL 02/13/2025 7:43 AM CDT [facility] ANION GAP 5.0 2 - 10 MMOL/L 02/13/2025 7:43 AM CDT [facility] BUN CREATININE RATIO 5.4(L) 6 - 26 02/13/2025 7:43 AM CDT [facility] GFR ESTIMATE >90 >90 ML/MIN/1.7 3 M2 02/13/2025 7:43 AM CDT [facility] Comment: NOTE: eGFR is not calculated for patients <18 years of age or gender unknown. This is an estimated GFR calculation using the new CKD EPI creatinine equation without race and so does not require a correction factor for race. This estimated GFR should not be used for calculating drug doses. 02/13/2025 6:55 AM CDT us Kala Thomas DO LABORATORY Final Res ult [facility] [address] [place] [address], [place] [phone] * (ABNORMAL) CBC W/DIFF AUTOMATED (02/13/2025 6:55 AM CDT) Only the most recent of5 resultswithin the time period is included. WBC 4.39(L) 4.5 - 11.0 x10'3/uL 02/13/2025 7:29 AM CDT [facility] RBC 5.68 4.70 - 6.10 x10'6/uL 02/13/2025 7:29 AM CDT [facility] HGB 17.3 14.0 - 18.0 G/DL 02/13/2025 7:29 AM CDT [facility] HCT 48.8 43.0 - 54.0 % 02/13/2025 7:29 AM CDT [facility] MCV 85.9 80.0 - 94.0 FL 02/13/2025 7:29 AM CDT [facility] MCH 30.5 27.0 - 31.0 PG 02/13/2025 7:29 AM CDT [facility] MCHC 35.5 32.0 - 36.0 G/DL 02/13/2025 7:29 AM CDT [facility] RDW 11.8 11.5 - 14.5 % 02/13/2025 7:29 AM CDT [facility] PLT 185 130 - 400 x10'3/uL 02/13/2025 7:29 AM CDT [facility] MPV 9.8 9.3 - 12.2 FL 02/13/2025 7:29 AM CDT [facility] DIFFERENTIAL TYPE AUTOMATED DIFFERENTIAL 02/13/2025 7:29 AM CDT [facility] NEUTROPHILS % 56.2 % 02/13/2025 7:29 AM CDT [facility] LYMPHOCYTES % 31.4 % 02/13/2025 7:29 AM CDT [facility] MONOCYTES % 8.0 % 02/13/2025 7:29 AM CDT [facility] EOSINOPHILS 3.0 % 02/13/2025 7:29 AM CDT [facility] BASOPHILS 0.7 % 02/13/2025 7:29 AM CDT [facility] IMMATURE GRANS % 0.7 % 02/14/20 7:29 AM CDT [facility] ABS. NEUTROPHILS 2.47 1.80 - 7.70 x10'3/uL 02/13/2025 7:29 AM CDT [facility] ABS. LYMPHOCYTES 1.38 1.00 - 4.80 x10'3/uL 02/13/2025 7:29 AM CDT [facility] ABS. MONOCYTES 0.35 0.30 - 0.82 x10'3/uL 02/13/2025 7:29 AM CDT [facility] ABS. EOSINOPHILS 0.13 0.04 - 0.54 x10'3/uL 02/13/2025 7:29 AM CDT [facility] ABS. BASOPHILS 0.03 0.01 - 0.08 x10'3/uL 02/13/2025 7:29 AM CDT [facility] ABS. IMMATURE GRANULOCYTES 0.03 0.00 - 0.49 x10'3/uL 02/13/2025 7:29 AM CDT [facility] 02/13/2025 6:55 AM CDT Kala Thomas DO LABORATORY Final Res ult [facility] [address] [place] [address], [place] [phone] * XR CHEST PORTABLE (02/13/2025 4:31 AM CDT) Only the most recent of4 resultswithin the time period is included. Anatomical Region Laterality Modality Chest Radiographic Dayanara ging 02/13/2025 4:44 AM CDT Impressions 02/13/2025 4:45 AM CDT IMPRESSION: ======== 1. No significant interval change Referred By: Interpreted By: José Luis Shepherd MD, 02/13/2025 4:44 AM Narrative 02/13/2025 4:45 AM CDT [facility] [address] [place], [place] [address] Examination: Chest x-ray 1 view Exam Date/Time: 02/13/2025 4:24 AM Reason For Exam: progress Pneumomediastinum Comparison: Chest radiograph 02/12/2025 Technique: Single AP view of the chest was obtained. Findings: Heart size normal. No pleural effusion. No pleural separation. Pulmonary vasculature within normal limits. Subcutaneous emphysema at the base of the neck and upper shoulders again seen not significant change from prior study. Minimal pneumomediastinum is still seen. ======== Procedure Note José Luis Shepherd MD - 02/13/[address] [address] Examination: Chest x-ray 1 view Exam Date/Time: 02/13/2025 4:24 AM Reason For Exam: progress Pneumomediastinum Comparison: Chest radiograph 02/12/2025 Technique: Single AP view of the chest was obtained. Findings: Heart size normal. No pleural effusion. No pleural separation.Pulmonary vasculature within normal limits. Subcutaneous emphysema atthe base of the neck and upper shoulders again seen not significant changefrom prior study. Minimal pneumomediastinum is still seen. ======== IMPRESSION: ======== 1. No significant interval change Referred By: Interpreted By: José Luis Shepherd MD, 02/13/2025 4:44 AM Rajan Briceno MD GENERAL IMAGING Final Result * XR ESOPHAGRAM/BARIUM SWALLOW (02/12/2025 11:18 AM CDT) Only the most recent of2 resultswithin the time period is included. Anatomical Region Laterality Modality Chest, Abdomen Fluoroscopy 02/12/2025 2:07 PM CDT Impressions 02/12/2025 2:20 PM CDT IMPRESSION: No extraluminal contrast to suggest current esophageal leak. Ordered By: MARILIN DUNN Interpreted By: Baldomero García, 02/12/2025 2:07 PM Narrative 02/12/2025 2:20 PM CDT [address] [address] IMAGING STUDIES: XR ESOPHAGRAM/BARIUM SWALLOW DATE: 02/12/2025 10:47 AM HISTORY: r/o esophageal tear 19-year-old male. Presented on 02/09/2025 with pneumomediastinum and bilateral neck air. Gastrografin esophagram 02/09/2025. Patient reports he was advanced to clear liquids on Wednesday, evening 02/10/2025. Improving pneumomediastinum and air in the lower neck on chest radiograph 02/12/2025 compared to 02/10/2025. COMPARISON: Chest portable 02/12/2025 and 02/10/2025. Esophagram 02/09/2025. CT chest, abdomen, and pelvis with contrast 02/09/2025. TECHNIQUE: Country Printer Apprentice images of the neck, chest, and upper abdomen acquired in AP and lateral views. Patient reports he cannot tolerate swallowing Gastrografin (reported vomiting during the esophagram with Gastrografin on 02/09/2025). With the patient standing, he swallowed single small sip of thin barium while in the LPO position, lateral position, and AP position. He then swallowed consecutive small sips of thin barium in LPO, lateral, and AP positions. Intermittent fluoroscopy and compliance representative dealer static and cine images obtained. Fluoroscopy time: 1 minute 18 seconds. Recorded radiation exposure: Total ED 18.6 mGy, total DAP 221 dGycm2. DISCUSSION: Persistent pneumomediastinum and air within the soft tissues of the neck. No extraluminal contrast to suggest current esophageal leak. Normal esophageal peristalsis. Procedure Note Baldomero García MD - 02/12/2025 [facility] [address] [place], [place] [address] IMAGING STUDIES: XR ESOPHAGRAM/BARIUM SWALLOWDATE: 510:47 AM HISTORY: r/o esophageal tear 19-year-old male. Presented on 02/09/2025with pneumomediastinum and bilateral neck air. Gastrografin esophagram02/09/2025. Patient reports he was advanced to clear liquids on Wednesday,evening 02/10/2025. Improving pneumomediastinum and air in the lower neck onchest radiograph 02/12/2025 compared to 02/10/2025. COMPARISON: Chest portable 02/12/2025 and 02/10/2025. Esophagram 02/09/2025. CTchest, abdomen, and pelvis with contrast 02/09/2025. TECHNIQUE: Country Printer Apprentice images of the neck, chest, and upper abdomen acquired in AP andlateral views. Patient reports he cannot tolerate swallowing Gastrografin(reported vomiting during the esophagram with Gastrografin on 02/09/2025).With the patient standing, he swallowed single small sip of thin bariumwhile in the LPO position, lateral position, and AP position. He thenswallowed consecutive small sips of thin barium in LPO, lateral, and APpositions. Intermittent fluoroscopy and compliance representative dealer static and cineimages obtained. Fluoroscopy time: 1 minute 18 seconds. Recorded radiation exposure: TotalED 18.6 mGy, total DAP 221 dGycm2. DISCUSSION: Persistent pneumomediastinum and air within the soft tissues of the neck.No extraluminal contrast to suggest current esophageal leak. Normalesophageal peristalsis. IMPRESSION: No extraluminal contrast to suggest current esophageal leak. Ordered By: MARILIN DUNN Interpreted By: Baldomero García, 02/12/2025 2:07 PM us Marilin Dunn TERMITE HELPER FLUOROSCOPY Final Resul t * (ABNORMAL) COMPREHENSIVE METABOLIC PANEL (02/12/2025 6:17 AM CDT) Only the most recent of4 resultswithin the time period is included. GLUCOSE 87 70 - 99 MG/DL 02/12/2025 7:11 AM CDT [facility] BUN 3(L) 7 - 18 MG/DL 02/12/2025 7:11 AM CDT [facility] CREATININE S/P/B 0.72 0.7 - 1.3 MG/DL 02/12/2025 7:11 AM CDT [facility] SODIUM S/P/B 136 136 - 145 MMOL/L 02/12/2025 7:11 AM T [facility] POTASSIUM S/P/B 3.1(L) 3.5 - 5.1 MMOL/L 02/12/2025 7:11 AM T [facility] CHLORIDE S/P/B 102 97 - 115 MMOL/L 02/12/2025 7:11 AM CDT [facility] CO2 25.2 21 - 32 MMOL/L 02/12/2025 7:11 AM T [facility] CALCIUM S/P/B 9.1 8.5 - 10.1 MG/DL 02/12/2025 7:11 AM T [facility] BILIRUBIN TOTAL S/P/B 1.0 0.2 - 1.2 MG/DL 02/12/2025 7:11 AM T [facility] Comment: THIS ASSAY IS NOT RECOMMENDED FOR PATIENTS UNDERGOING TREATMENT WITH ELTROMBOPAG DUE TO THE POTENTIAL FOR FALSELY ELEVATED RESULTS. TOTAL PROTEIN S/P/B 6.4 6.4 - 8.2 G/DL 02/12/2025 7:11 AM CDT [facility] ALBUMIN S/P/B 3.7 3.4 - 5.0 G/DL 02/12/2025 7:11 AM T [facility] AST 6(L) 15 - 37 U/L 02/12/2025 7:11 AM CDT [facility] ALT 33 16 - 60 U/L 02/12/2025 7:11 AM CDT [facility] ALKALINE PHOSPHATASE S/P/B 73 50 - 136 U/L 02/12/2025 7:11 AM CDT [facility] ANION GAP 8.8 2 - 10 MMOL/L 02/12/2025 7:11 AM CDT [facility] BUN CREATININE RATIO 4.1(L) 6 - 26 02/12/2025 7:11 AM CDT [facility] A/G RATIO 1.4 1.0 - 2.0 RATIO 02/12/2025 7:11 AM CDT [facility] GFR ESTIMATE >90 >90 ML/MIN/1.7 3 M2 02/12/2025 7:11 AM CDT [facility] Comment: NOTE: eGFR is not calculated for patients <18 years of age or gender unknown. This is an estimated GFR calculation using the new CKD EPI creatinine equation without race and so does not require a correction factor for race. This estimated GFR should not be used for calculating drug doses. 02/12/2025 6:17 AM CDT us Hollie Modi NP LABORATORY Final Result [facility] [address] [place] [address], [place] [phone] * MAGNESIUM (02/12/2025 6:17 AM CDT) Only the most recent of4 resultswithin the time period is included. MAGNESIUM 1.9 1.8 - 2.4 MG/DL 02/12/2025 7:11 AM CDT [facility] 02/12/2025 6:17 AM CDT us Hollie Modi NP LABORATORY Final Result [facility] [address] [place] [address], * GI PANEL PCR - STOOL (02/10/2025 2:11 PM CDT) CAMPYLOBACTER PCR (STOOL) NOT DETECTED NOT DETECTED 02/10/2025 3:59 PM CDT [facility] PLESIOMONAS SHIGELLOIDES PCR (STOOL) NOT DETECTED NOT DETECTED 02/10/2025 3:59 PM CDT [facility] SALMONELLA PCR (STOOL) NOT DETECTED NOT DETECTED 02/10/2025 3:59 PM CDT [facility] VIBRIO PCR (STOOL) NOT DETECTED NOT DETECTED 02/10/2025 3:59 PM CDT [facility] VIBRIO CHOLERAE PCR (STOOL) NOT DETECTED NOT DETECTED 02/10/2025 3:59 PM CDT [facility] YERSINIA ENTEROCOLITICA PCR (STOOL) NOT DETECTED NOT DETECTED 02/10/2025 3:59 PM CDT [facility] ENTEROAGGREGATIVE ECOLI PCR (STOOL) NOT DETECTED NOT DETECTED 02/10/2025 3:59 PM CDT [facility] ENTEROPATHOGENIC ECOLI PCR (STOOL) NOT DETECTED NOT DETECTED 02/10/2025 3:59 PM CDT [facility] ENTEROTOXIGENIC ECOLI PCR (STOOL) NOT DETECTED NOT DETECTED 02/10/2025 3:59 PM CDT [facility] SHIGA LIKE TOXIN ECOLI PCR (STOOL) NOT DETECTED NOT DETECTED 02/10/2025 3:59 PM CDT [facility] SHIG/ENTEROINVASIVE ECOLI PCR (STOOL) NOT DETECTED NOT DETECTED 02/10/2025 3:59 PM CDT [facility] CRYPTOSPORIDIUM PCR (STOOL) NOT DETECTED NOT DETECTED 02/10/2025 3:59 PM CDT [facility] CYCLOSPORA CAYETANENSIS PCR (STOOL) NOT DETECTED NOT DETECTED 02/10/2025 3:59 PM CDT [facility] ENTAMOEBA HISTOLYTICA PCR (STOOL) NOT DETECTED NOT DETECTED 02/10/2025 3:59 PM CDT [facility] GIARDIA LAMBLIA PCR (STOOL) NOT DETECTED NOT DETECTED 02/10/2025 3:59 PM CDT [facility] ADENOVIRUS F40/41 PCR (STOOL) NOT DETECTED NOT DETECTED 02/10/2025 3:59 PM CDT [facility] ASTROVIRUS PCR (STOOL) NOT DETECTED NOT DETECTED 02/10/2025 3:59 PM CDT [facility] NOROVIRUS GI/GII PCR (STOOL) NOT DETECTED NOT DETECTED 02/10/2025 3:59 PM CDT [facility] ROTAVIRUS A PCR (STOOL) NOT DETECTED NOT DETECTED 02/10/2025 3:59 PM CDT [facility] SAPOVIRUS PCR (STOOL) NOT DETECTED NOT DETECTED 02/10/2025 3:59 PM CDT [facility] STOOL SPECIMEN / Unknown 02/10/2025 2:11 PM CDT Ban KURTZ MICROBIOLOGY - GENERAL ORDER RICK Final Result [facility] [address] [place] [address], [place] [phone] * CLOSTRIDIUM DIFFICILE (02/10/2025 2:11 PM CDT) [facility] ANTIGEN NEGATIVE NEGATIVE 02/10/2025 3:16 PM CDT [facility] C DIFFICILE TOXIN A&B (STOOL) NEGATIVE NEGATIVE 02/10/2025 3:16 PM CDT [facility] COMMENT GDH NEGATIVE/TOXI N A & B NEGATIVE: NEGATIVE FOR TOXIGENIC C. DIFFICILE. 02/10/2025 3:16 PM CDT [facility] STOOL SPECIMEN / Unknown 02/10/2025 2:11 PM CDT Ban KURTZ BODY FLUIDS AND STOOLS ORDER RICK Final Result Performing Organization Address City/[facility]/ZIP Co de Phone Number [facility] [address] [place] [address], * OCCULT BLOOD, FECES (02/10/2025 2:11 PM CDT) OCCULT BLOOD FECAL NEGATIVE NEGATIVE 02/10/2025 3:04 PM CDT [facility] STOOL SPECIMEN / Unknown 02/10/2025 2:11 PM CDT Ban KURTZ BODY FLUIDS AND STOOLS ORDER RICK Final Result Performing Organization Address City/[facility] Co de Phone Number [facility] [address] [place] [address], [place] [phone] * HEMOGLOBIN, GLYCOSYLATED (02/10/2025 7:15 AM CDT) HGB A1C 4.1 <5.7 % 02/13/2025 6:28 PM CDT [facility] Comment: ADA GUIDELINES 2010 5.7 TO 6.4% INCREASED RISK OF DIABETES > OR = 6.5% CONSISTENT WITH DIABETES ESTIMATED AVG GLUCOSE 71 mg/dL 02/13/2025 6:28 PM CDT [facility] 02/10/2025 7:15 AM CDT Hollie Modi TERMITE HELPER LABORATORY Final Result Performing Organization Address [facility]/ZIP Co de Phone Number [facility] [address] [place] [address], [place] [phone] * PROCALCITONIN (PCT) (02/10/2025 7:14 AM CDT) Procalcitonin <0.05 0.00 - 0.49 NG/ML 02/10/2025 10:47 AM CDT [facility] 02/10/2025 7:14 AM CDT Ban HARRINGTONNP LABORATORY Final Result Performing Organization Address [facility] Co de Phone Number [facility] [address] [place] [address], [place] [phone] * LACTIC ACID (02/09/2025 11:33 PM CDT) LACTIC ACID VENOUS 1.0 0.4 - 2.0 MMOL/L 02/10/2025 12:10 AM CDT [facility] 02/09/2025 11:3 3 PM CDT Yulia Lee DO LABORATORY Final Result Performing Organization Address City/[facility]/ZIP Co de Phone Number [facility] [address] [place] [address], [place] [phone] * (ABNORMAL) URINALYSIS (02/09/2025 6:24 PM CDT) SPECIMEN TYPE URINE, UNSPECIFIED 02/09/2025 6:24 PM CDT [facility] COLOR (U) YELLOW 02/09/2025 10:10 PM CDT [facility] TRANSPARENCY CLEAR 02/09/2025 10:10 PM CDT [facility] SPECIFIC GRAVITY (U) >1.050(H) 1.001 - 1.030 02/09/2025 10:10 PM CDT [facility] U PH 6.5 5.0 - 9.0 02/09/2025 10:10 PM CDT [facility] LEUKOCYTES (U) NEGATIVE NEGATIVE 02/09/2025 10:10 PM CDT [facility] NITRITES NEGATIVE NEGATIVE 02/09/2025 10:10 PM CDT [facility] PROTEIN RANDOM (U) 30(H) <30 MG/DL 02/09/2025 10:10 PM CDT [facility] GLUCOSE (U) NORMAL NORMAL MG/DL 02/09/2025 10:10 PM CDT [facility] KETONES MG/DL (U) 150(A) NEGATIVE MG/DL 02/09/2025 10:10 PM CDT [facility] UROBILINOGEN NORMAL NORMAL MG/DL 02/09/2025 10:10 PM CDT [facility] BILIRUBIN (U) 0.5(A) NEGATIVE MG/DL 02/09/2025 10:10 PM CDT [facility] BLOOD (U) NEGATIVE NEGATIVE 02/09/2025 10:10 PM CDT [facility] MUCUS RARE /LPF 02/09/2025 10:10 PM CDT [facility] RBC/HPF 6(H) <6 /HPF 02/09/2025 10:10 PM CDT [facility] SQUAMOUS EPITHELIALS RARE /HPF 02/09/2025 10:10 PM CDT [facility] URINE SPECIMEN / Unknown 02/09/2025 6:24 PM CDT us Brian Ady Fernandez DO URINE ORDERABLES Final Result [facility] [address] [place] [address], [place] [phone] * (ABNORMAL) DRUG SCREEN RAPID (02/09/2025 6:00 PM CDT) Pathologist [facility] AMPHETAMINE (U) NEGATIVE NEGATIVE 6:25 PM CDT [facility] BARBITURATES SCREEN (U) NEGATIVE NEGATIVE 02/09/2025 6:25 PM CDT [facility] BENZODIAZEPINES SCREEN (U) NEGATIVE NEGATIVE 02/09/2025 6:25 PM CDT [facility] CANNABINOIDS SCREEN (U) POSITIVE(A) NEGATIVE 02/09/2025 6:25 PM CDT [facility] COCAINE METABOLITES (U) NEGATIVE NEGATIVE 02/09/2025 6:25 PM CDT [facility] METHADONE (U) NEGATIVE NEGATIVE 02/09/2025 6:25 PM CDT [facility] OPIATE SCREEN (U) NEGATIVE NEGATIVE 025 6:25 PM CDT [facility] PHENCYCLIDINE PCP (U) NEGATIVE NEGATIVE 02/09/2025 6:25 PM CDT [facility] Comment: NOTE: RESULTS OF THIS DRUG SCREEN SHOULD BE USED FOR MEDICAL PURPOSES ONLY AND NOT FOR LEGAL OR EMPLOYMENT PURPOSES. POSITIVE RESULTS ARE NOT CONFIRMED. MEDICATIONS CONTAINING EPHEDRINE MAY CAUSE FALSE POSITIVE AMPHETAMINE CALL [phone], LAB, TO REQUEST CONFIRMATION TESTING. IF CREATININE IS <40 mg/dL. RECOLLECTION IS SUGGESTED. AMPHETAMINE- 500 NG/ML BARBITURATE- 200 NG/ML BENZODIAZEPINES- 200 NG/ML THC- 50 NG/ML COCAINE- 150 NG/ML METHADONE- 300 NG/ML OPIATE- 300 MG/ML PCP- 25 NG/ML CREATININE (U) 142.0 39 - 259 MG/DL 02/09/2025 6:25 PM CDT [facility] URINE SPECIMEN / Unknown 02/09/2025 6:00 PM CDT Brian Fernandez DO URINE ORDERABLES Final Result [facility] [address] [place] [address], * ECG 12 lead (02/09/2025 5:03 PM CDT) 02/09/2025 5:03 PM CDT Narrative [facility] ([facility]) RAD - 02/09/2025 5:12 PM [address]T [address] Test Date: 2025-02-09 Pat Name: STEPHANY WYNNCK Department: 41 Room: [place] [address] 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2005 Requested By: BRIAN FERNANDEZ Order Number: [id number] Reading MD: Measurements Intervals [place] Rate: 107 P: 38 MT: 104 QRS: 50 QRSD: 96 T: 48 QT: 315 QTc: 421 Interpretive Statements SINUS TACHYCARDIA WITH SHORT MT INTERVAL ABNORMAL RHYTHM ECG No previous ECG available for comparison Other ischemic changes, not STEMI Preliminary EKG Interpretation by Brian Fernandez DO Procedure Note , Generic Conversion, - 02/09/[address] Test Date: 2025-02-09 Pat Name: STEPHANY RANGEL Department: 41 Room: [id number] 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 ([place] RAD * CT CHEST+ABD+PEL W CON (02/09/2025 3:17 PM CDT) Anatomical Region Laterality Modality Chest, Abdomen, Pelvis Computed Tomography 02/09/2025 3:20 PM CDT Addenda Addendum by Art García MD on 02/09/2025 4:16 PM CDT [address] [address] Addendum: Results acknowledged with read receipt obtained at 4:03 PM. Ordered By: JIM HOROWITZ Interpreted By: Art García MD, 02/09/2025 4:15 PM Impressions 02/09/2025 3:47 PM CDT Impression: 1. Extensive pneumomediastinum, of uncertain etiology. There is extensive subcutaneous emphysema also seen within the lower neck soft tissues as well as right greater than left lateral chest witt and extending into the right epidural space. Foci of gas extends into the right greater than left pleural spaces compatible with tiny bilateral pneumothoraces. 2. No acute findings within the abdomen or pelvis. Findings were communicated to JIM HOROWITZ by Art García MD via [employer] at 02/09/2025 3:31 PM. Ordered By: JIM HOROWITZ Interpreted By: Art García MD, 02/09/2025 3:20 PM Narrative 02/09/2025 3:47 PM CDT [address], [place] [address] EXAMINATION: CT Chest, Abdomen and Pelvis with contrast EXAM DATE/TIME: 02/09/2025 3:05 PM REASON FOR EXAM: Abnormal CXR . Shortness of breath. COMPARISON: Chest radiograph 02/09/2025. TECHNIQUE: Contrast enhanced CT examination of the chest, abdomen, and pelvis was performed with axial and multiplanar reformatted images obtained, 100mL of IOPAMIDOL 76 % IV SOLN. A dose lowering technique was used for this procedure, which may include, but is not limited to, dose reduction technique, automated exposure control, iterative reconstruction, ALARA (As Low As Reasonably Achievable), or Image Gently techniques. FINDINGS: Chest: - Chest wall and Thoracic Inlet: There is extensive subcutaneous emphysema seen within the lower neck soft tissues, lateral right greater than left chest wall. Mild bilateral gynecomastia. - Mediastinum and Martha: Extensive pneumomediastinum seen throughout the anterior middle and posterior mediastinum. Gas extends along the posterior and lateral aspects of the right hemithorax compatible with tiny pneumothorax. Pleural-pleural separation measures approximately 3 mm on the right and 5 mm on the left. Gas is seen within the right epidural space diffusely. - Thoracic Vessels: Normal caliber of the thoracic aorta and main pulmonary artery. - Heart and Pericardium: Normal heart size. Trace pericardial effusion. - Lungs and Airways: No suspicious nodules or opacities. - Pleura: No pleural effusions. Abdomen and pelvis: - Liver: Normal in morphology and enhancement. No suspicious hepatic masses are identified. The portal and hepatic veins are patent. - Biliary and Gallbladder: No intrahepatic or extrahepatic biliary ductal dilatation. The gallbladder is unremarkable. - Spleen: Normal in appearance. - Pancreas: Normal in appearance. - Adrenal Glands: Normal in appearance. - Kidneys: Symmetric in size and enhancement. No suspicious renal lesions. No hydronephrosis. - Abdominal and Pelvic Vasculature: No abdominal aortic aneurysm. - Gastrointestinal Tract: No abnormal dilation or wall thickening. Mild colonic diverticulosis without evidence for acute diverticulitis. The appendix is within normal limits. - Peritoneum/Mesentery/Retroperitoneum: No free fluid. No free intraperitoneal air. - Lymph Nodes: No retroperitoneal, mesenteric, or pelvic lymphadenopathy. - Bladder: Normal in appearance. - Pelvic Organs: Unremarkable. - Body Wall: Unremarkable. - Musculoskeletal: No aggressive appearing osseous lesions. Incompletely visualized fixation hardware within the proximal left femur. Procedure Note Art García MD - 02/09/2025 [facility] [address] [place], [place] [address] EXAMINATION: CT Chest, Abdomen and Pelvis with contrast EXAM DATE/TIME: 02/09/2025 3:05 PM REASON FOR EXAM: Abnormal CXR . Shortness of breath. COMPARISON: Chest radiograph 02/09/2025. TECHNIQUE: Contrast enhanced CT examination of the chest, abdomen, andpelvis was performed with axial and multiplanar reformatted imagesobtained, 100mL of IOPAMIDOL 76 % IV SOLN. A dose lowering technique wasused for this procedure, which may include, but is not limited to, dosereduction technique, automated exposure control, iterative reconstruction,ALARA (As Low As Reasonably Achievable), or Image Gently techniques. FINDINGS: Chest: - Chest wall and Thoracic Inlet: There is extensive subcutaneous emphysemaseen within the lower neck soft tissues, lateral right greater than leftchest wall. Mild bilateral gynecomastia. - Mediastinum and Martha: Extensive pneumomediastinum seen throughout theanterior middle and posterior mediastinum. Gas extends along the posteriorand lateral aspects of the right hemithorax compatible with tinypneumothorax. Pleural-pleural separation measures approximately 3 mm onthe right and 5 mm on the left. Gas is seen within the right epiduralspace diffusely. - Thoracic Vessels: Normal caliber of the thoracic aorta and mainpulmonary artery. - Heart and Pericardium: Normal heart size. Trace pericardial effusion. - Lungs and Airways: No suspicious nodules or opacities. - Pleura: No pleural effusions. Abdomen and pelvis: - Liver: Normal in morphology and enhancement. No suspicious hepaticmasses are identified. The portal and hepatic veins are patent. - Biliary and Gallbladder: No intrahepatic or extrahepatic biliary ductaldilatation. The gallbladder is unremarkable. - Spleen: Normal in appearance. - Pancreas: Normal in appearance. - Adrenal Glands: Normal in appearance. - Kidneys: Symmetric in size and enhancement. No suspicious renallesions. No hydronephrosis. - Abdominal and Pelvic Vasculature: No abdominal aortic aneurysm. - Gastrointestinal Tract: No abnormal dilation or wall thickening. Mildcolonic diverticulosis without evidence for acute diverticulitis. Theappendix is within normal limits. - Peritoneum/Mesentery/Retroperitoneum: No free fluid. No freeintraperitoneal air. - Lymph Nodes: No retroperitoneal, mesenteric, or pelviclymphadenopathy. - Bladder: Normal in appearance. - Pelvic Organs: Unremarkable. - Body Wall: Unremarkable. - Musculoskeletal: No aggressive appearing osseous lesions. Incompletelyvisualized fixation hardware within the proximal left femur. Impression: 1. Extensive pneumomediastinum, of uncertain etiology. There is extensivesubcutaneous emphysema also seen within the lower neck soft tissues aswell as right greater than left lateral chest witt and extending into theright epidural space. Foci of gas extends into the right greater than leftpleural spaces compatible with tiny bilateral pneumothoraces. 2. No acute findings within the abdomen or pelvis. Findings were communicated to JIM HOROWITZ by Art García MD [facility] at 02/09/2025 3:31 PM. Ordered By: JIM HOROWITZ Interpreted By: Art García MD, 02/09/2025 3:20 PM Jim Horowitz MD CT Edited Result - Final * LIPASE (02/09/2025 12:32 PM CDT) LIPASE 16 13 - 75 UNITS/L 02/09/2025 1:16 PM CDT [facility] 02/09/2025 12:3 2 PM CDT us Jim Horowitz MD LABORATORY Final Result [facility] [address] [place] [address], [place] [phone] from Last 3 Months Insurance [employer] Advance Directives * Full Code (Latest Code Status on File) Date Activated Date Inactivated Comments 02/09/2025 8:01 PM 02/13/2025 1:29 PM Care Teams Document Design Specialist Relationship Specialty Start Date End Date Prem Rodriguez MD [address] [phone] PCP - General FAMILY PRACTICE 02/09/25
[2025-02-16 12:05] LABS: Add Urine Microscopic? YES; Appearance Urine Cloudy (Clear); Bacteria Urine None Seen /hpf; Bilirubin Urine Negative (Negative); Blood Urine Negative (Negative); Color Urine Dark Yellow (Yellow); Glucose Urine UA Negative (Negative); Ketones Urine 4+ mg/dL (Negative); Leukocyte Esterase Ur Negative LEU/UL (Negative); Nitrate Urine Negative (Negative); Non Pathogenic Casts 0-2; Protein Urine 1+ mg/dL (Negative); RBC Urine 0-2 /hpf (0-2); Specific Grav Ur 1.022 (1.001-1.035); Squamous Epithelial Cell Urine None Seen /hpf (Few); WBC Urine 0-5 /hpf (0-3)
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
[2025-02-16] MEDS: diphenhydrAMINE HCl INJ 50 MG/ML VIAL 25 MG IV PUSH (12:28)
[2025-02-16] MEDS: METOCLOPRAMIDE HCL INJ 10 MG/2 ML VIAL IV PUSH (12:28)
[2025-02-16] MEDS: HALOPERIDOL LACTATE 5 MG/ML VIAL IM (12:28)
[2025-02-16] MEDS: SODIUM CHLORIDE 0.9% IV 1,000 ML 999 ML IV CONT ×2 (12:28→14:07)
[2025-02-16 14:23] LABS: Amphetamine Screen Urine Negative (Negative); Barbiturate Screen Urine Negative (Negative); Benzodiazepines Screen Urine Negative (Negative); Cannabinoid Screen Urine Positive (Negative); Cocaine Screen Urine Negative (Negative); Methadone Screen Urine Negative (Negative); Opiate Screen Urine Negative (Negative); Phencyclidine Screen Urine Negative (Negative)
[2025-02-16] MEDS: DICYCLOMINE HCL 10 MG CAPSULE 20 MG PO (15:07)
[2025-02-16] MEDS: hydrOXYzine HCL 25 MG TABLET PO (15:07)
[2025-02-16 15:32] VITALS: BP 106/71; PULSE 113; RESP 11; O2SAT 100
== END 2025-02-16 15:34 | disposition home or self-care (01) ==
PROVIDERS: Emergency Medicine; Emergency Provider Registered Nurse
DX: K21.9 Gastro-esophageal reflux disease without esophagitis (principal); K52.9 Noninfective gastroenteritis and colitis, unspecified; E86.0 Dehydration; R11.2 Nausea with vomiting, unspecified; F12.90 Cannabis use, unspecified, uncomplicated
CPT/HCPCS: 36415; 74177; 80053; 80307; 81001; 83690; 85025; 96361; 96372; 96374; 96375; 99284; A9270; J1200; J1630; J2765; J7030; Q9967